=== PATIENT | male | born 1950 | race Caucasian/White ===

== ENCOUNTER 2025-06-29 15:19 | Outpatient (OUT) | payer OTHER, SELFPAY ==
--- OUTSIDE RECORDS SUMMARY | 2025-06-29 15:29 | XMS_ITS | Clinical Summary ---
Author Organization [facility] Address [address] [place] [address] Phone Care Team Providers Care Break And Load Operator Name Role Phone Dedrick Anton Charles Primary Care Provider [phone] Allergies Active AllergyReactionsCriticalityNoted DateCommentsOxycodone-Acetaminophen Avjzksq8206/18/2023 Medications MedicationSigDispense QuantityRefillsLast FilledStart DateEnd DateStatus EPINEPHrine 0.3 mg/0.3 mL injection syringe Inject 0.3 mL (0.3 mg) into the muscle 1 time if needed for anaphylaxis. Inject into upper leg. Call 911 after use.Active metoprolol tartrate (Lopressor) 25 mg tablet Take 1 tablet (25 mg) by mouth 2 times a day.Active tamsulosin (Flomax) 0.4 mg 24 hr capsule Take 1 capsule (0.4 mg) by mouth once daily.Active aspirin 81 mg EC tablet Take 1 tablet (81 mg) by mouth once daily.Active atorvastatin (Lipitor) 40 mg tablet Indications:Thoracic aortic aneurysm (TAA), unspecified part, unspecified whether ruptured,Dissection of descending thoracic aorta (Multi)Take 1 tablet (40 mg) by mouth once daily. 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 Essential mwbfvfgbvuff94/15/2023 Assessment & Plan (07/26/2024 3:21 PM EST): optimal in office Mixed xrbhaccefsoynr37/15/2023 Assessment & Plan (07/26/2024 3:21 PM EST): Moderate intensity statin Due for labs Resolved Problems ProblemNoted DateDiagnosed DateResolved DateCurrent bkrhij82 Thoracic aortic eqelkfln10Preoperative cardiovascular rzzbxizpypb96 Encounters DateTypeDepartmentCare SkbcAcdrlndfflu70/11/2025Telephone [facility] [address] [place] [phone] Lisa Chew LPN from Last 3 Months Immunizations ImmunizationAdministration DatesNext DueTdap vaccine, age 7 year and older (BOOSTRIX, ADACEL)07/31/2019 Family History Medical HistoryRelationNameCommentsNo Known ProblemsBrotherPancreatic cancer FatherNo Known ProblemsMotherDiabetes type IISistermalignant neoplasmSister RelationNameStatusCommentsBrotherFatherMotherSister Social History Tobacco UseTypesPacks/DayYears UsedDateSmoking Tobacco: FormerCigarettes Smokeless Tobacco: Never Tobacco Cessation:Counseling Given: Not Answered Alcohol UseStandard Drinks/WeekCommentsNever0 (1 standard drink = 0.6 oz pure alcohol)PHQ-2AnswerDate RecordedPatient Health Questionnaire-2 Atone477 Sex and Gender InformationValueDate RecordedSex Assigned at BirthNot on file Legal NlrKctv53/25/2022 4:16 PM ESTGender IdentityNot on fileSexual Orientation Not on file Last Filed Vital Signs Vital SignReadingTime TakenCommentsBlood Qcwpvaaf914/80007/26/2024 2:27 PM EST Ejwel6115/22/2025 2:27 PM ESTTemperature--Respiratory Rate--Oxygen Saturation-- Inhaled Oxygen Concentration--Inukwi30.8 kg (165 lb)07/26/2024 2:27 PM ESTHeight 177.8 cm (5' 10 )07/26/2024 2:27 PM ESTBody Mass Index23.68007/26/2024 2:27 PM EST Plan of Treatment DateTypeDepartmentCare Team (Latest Contact Info)Uyggkhqmgdo64/21/2026 4:00 PM ESTOffice Visit [facility] [address] [place] [address] Halina Reyes, LEGISLATIVE ANALYST-ETIOLOGIST [address] [place] [address] Health MaintenanceDue DateLast DoneCommentsCT Ukmqectqwxox48/05/1951Colonoscopy 1949Colorectal Cancer Ebnegxrgj20/05/1950FIT-DNA (Cologuard)1950FIT 1950 5304Jlvysqldaeqbd99/05/1950Yearly Adult Jyhmrqhe39/05/1950MMR Vaccines (1 of 1 - Standard series)1950Hepatitis C Yvybjnsia09/05/1968Pneumococcal Vaccine (1 of 1 - PCV)10/08/1999Zoster Vaccines (1 of 2)10/08/1999Abdominal Aortic Aneurysm (AAA) Hxrztfoeo11/05/2015Diabetes Ehfgsbmnl87/11/2022, 11/25/2022RSV High Risk: (Elderly (60+) or Population) (1 - 1-dose 75+ series)2024OVID-19 Vaccine (1 - 2024- season)2025Influenza Vaccine (#1)2025Lipid PanelTaP/Tdap/Td Vaccines (2 - Td or Tdap)HIB VaccinesAged OutNo longer eligible based on patient's age to complete this topicHPV VaccinesAged OutNo longer eligible based on patient's age to complete this topicHepatitis A VaccinesAged OutNo longer eligible based on patient's age to complete this topicHepatitis B VaccinesAged OutNo longer eligible based on patient's age to complete this topicIPV Vaccines Aged OutNo longer eligible based on patient's age to complete this topic Meningococcal VaccineAged OutNo longer eligible based on patient's age to complete this topicRotavirus VaccinesAged OutNo longer eligible based on patient's age to complete this topic Insurance * Guarantor: Steve Yip TypeRelation to PatientDate of BirthPhone Billing AddressPersonal/UaxiuhDxfm83/05/1951 [address] [facility] * Guarantor: Steve Yip TypeRelation to PatientDate of BirthPhone Billing AddressPersonal/RxrtrgFhcs14/05/1951 [address] [place] [address] Care Teams Team MemberRelationshipSpecialtyStart DateEnd Date Anton Tse DO [address] [place] [address] [facility]12/23/22
--- OUTSIDE RECORDS SUMMARY | 2025-06-29 15:29 | XMS_ITS | Clinical Summary ---
Author Organization [facility] Address [address] [facility] [place] [address] Care Team Providers Care Watch Train Inspector Name Role Phone Anton Tse DO Primary Care Provider [phone] Milli Garrison MD Unavailable [phone] Enriqueta Galeana APRN-INSURANCE HEALTHCARE CONSULTANT Unavailable [phone] Source Comments The following information is NOT included in Care Everywhere downloads:Psychiatric notes, ECG results, Cardiac Rehab notes, Pulmonary Function notes, data from [employer] (includes but not limited toPregnancy data,audiograms, eye exams, pre-surgical evaluation notes, well-child exam data).[facility] Allergies Active AllergyReactionsCriticalityNoted OgabNckxlxsjAjkfqicdKkptyat01/23/2023 Medications MedicationSigDispense QuantityRefillsLast FilledStart DateEnd DateStatus tamsulosin (FLOMAX) 0.4 MG capsule Take 1 Capsule by mouth daily. 60 Capsule 11:57 AM EDT11/30/2022ctive Multiple Vitamins-Minerals (Yan Multivitamin for Men) TABS Yan Multivitamin for Men ActiveActive atorvastatin (LIPITOR) 40 mg tablet Take 1 Tablet by mouth daily. 90 Tablet ctive metoprolol (LOPRESSOR) 25 MG tablet Take 1 Tablet by mouth 2 times daily. 60 Tablet ctive aspirin 81 MG chewable tablet Take 1 Tablet by mouth daily. 30 Tablet 11001/08/2023ctive acetaminophen (TYLENOL) 500 MG tablet Take 2 Tablets by mouth every 8 hours. 30 Tablet 01/07/2023ctive Active Problems ProblemNoted DateDiagnosed DateInfrarenal abdominal aortic aneurysm (AAA) without envykiu0601/06/2023Iliac artery cnnycarb38/12/2023issection of descending thoracic aorta11/24/2022 Resolved Problems ProblemNoted DateDiagnosed DateResolved DateAbdominal aortic aneurysm (AAA) without zyuepbv94 Immunizations ImmunizationAdministration DatesNext DuePfizer Monovalent (12+ yrs) SARS-COV-2 (COVID-19) vaccine, mRNA, spike protein, LNP, pres. free, 30mcg/0.3mL dose (BES=050)02/26/2021,02/05/2021Tdap (UYI=928)07/31/2019 Social History Tobacco UseTypesPacks/DayYears UsedDateSmoking Tobacco: Some XbdoPxxemwklyt9Qbyc attempted to quit: 08/19/2022Smokeless Tobacco: Never Tobacco Cessation:Ready to Q uit: Not Asked; Counseling Given: Not Answered Comments:Occ Alcohol UseStandard Drinks/WeekCommentsYes0 (1 standard drink = 0.6 oz pure alcohol)3 beers a monthHumiliation, Afraid, Rape, and Kick questionnaireAnswer Date RecordedWithin the last year, have you been afraid of your partner or ex-partner?No12/24/2022Within the last year, have you been humiliated or emotionally abused in other ways by your partner or ex-partner?No12/24/2022 Within the last year, have you been kicked, hit, slapped, or otherwise physically hurt by your partner or ex-partner?No12/24/2022Within the last year, have you been raped or forced to have any kind of sexual activity by your part ner or ex-partner?No12/24/2022Social Connection and Isolation PanelAnswerDate RecordedIn a typical week, how many times do you talk on the phone with family, friends, or neighbors?Patient xqcnqxmu44/22/2023How often do you get together with friends or relatives?Patient spivozue90/22/2023How often do you attend mandaen or worship services?Patient aarzsfri87/22/2023o you belong to any clubs or organizations such as mandaen groups, unions, fraternal or athletic jacki ups, or school groups?Patient cqwfckuz71/22/2023How often do you attend meetings of the clubs or organizations you belong to?Patient kbgkltip38/22/2023re you , , , , never , or living with a partner? Tppyfdb7212/24/2022Overall Financial Resource Strain (CARDIA)AnswerDate Recorded How hard is it for you to pay for the very basics like food, housing, medical care, and heating?Not hard at all12/24/2022Finhigh[facility] [place] [facility] Occup[facility] - Occupational Stress QuestionnaireAnswerDate RecordedDo you feel stress - tense, restless, nervous, or anxious, or unable to sleep at night because your mind is troubled all the time - these days?Patient dfmvvynx54/22/2023Exercise Vital SignAnswerDate RecordedOn average, how many days per week do you engage in moderate to strenuous exercise (like a brisk walk)?Patient fqiezfzs90/22/2023On average, how many minutes do you engage in exercise at this level?Patient whblhold74/22/2023Hunger Vital SignAnswerDate RecordedWithin the past 12 months, you worried that your food would run out before you got the money to buymore. Never true12/24/2022Within the past 12 months, the food you bought just didn't last and you didn't have money to get more.Never true12/24/2022RAPARE - TransportationAnswerDate RecordedIn the past 12 months, has lack of transportation kept you from medical appointments or from getting medications?No 12/24/2022In the past 12 months, has lack of transportation kept you from meetings, work, or from getting things needed for daily living?No12/24/2022 Housing Stability Vital SignAnswerDate RecordedIn the last 12 months, was there a time when you were not able to pay the mortgage or rent on time?No12/24/2022In the last 12 months, how many places have you lived?In the last 12 months, was there a time when you did not have a steady place to sleep or slept in ashelter (including now)?No12/24/2022EducationAnswerDate RecordedWhat is the highest level of school you have completed or the highest degree you have received?12th grade12/24/2022Substance UseTypesUse/WeekCommentsNot CurrentlySex and Gender InformationValueDate RecordedSex Assigned at XwvccKhzk51/10/2023 6:26 PM EDTLegal BarQppk3111/24/2022 8:59 AM EDTGender XadzzjqjWgjd43/10/2023 6:26 PM EDTSexual GapjwtxocsvVaotqbcw00/10/2023 6:26 PM EDT Last Filed Vital Signs Vital SignReadingTime TakenCommentsBlood Jxmgoaei131/5907 10:39 AM EDT Aejhi264601/07/2023 10:39 AM FPUVqxnpoaxkcx77.4 ??C (97.5 ??F)01/07/2023 10:39 AM EDTRespiratory Wmrk693101/07/2023 10:39 AM EDTOxygen Clrbrphswa75%01/07/2023 10:39 AM EDTInhaled Oxygen Concentration--Iueolh13.7 kg (158 lb)01/06/2023 11:54 AM DFKPxewvl602.8 cm (5' 10 )01/06/2023 11:54 AM EDTBody Mass Index22.6707 11:54 AM EDT Plan of Treatment Health MaintenanceDue DateLast WgnrSiriaavrZnurehybajv15/05/1951Hepatitis C Vwvsqqxa68/05/1968Hepatitis A (HAV) Vaccine (optional start 19+ years)1968 Pneumococcal Vaccine(s) (50+ yrs) (1 of 2 - PCV)1968CRC Screening 1994Cologuard (Stool DNA)1994FIT1994Shingles (RZV) Vaccine (1 of 2)10/08/1999Hepatitis B (HBV) Vaccine (optional start 60+ years)2009 Basic Metabolic Panel/02/2023, 01/06/2023, 12/11/2022, Additional history existsRSV vaccine (adult) (1 - 1-dose 75+ series)2024OVID-19 Vaccine (3 - season)/, 02/05/2021Influenza Vaccine (#1)03/05/20253651Gbioqwfdwap12Tetanus (Td or Tdap) Booster Tdap GdtbddiZomaxykgk86/27/2020 Medical Devices ImplantedTypeAreaManufacturerDevice IdentifierShelf Expiration DateModel / Serial / LotGft Evas 14cm 14.5mm 32mm Ea1 [id number] - [id number] Implanted:Qty: 1 on 01/06/2023 by Milli Garrison MD at INPATIENT DEPARTMENTSGraft SyntheticN/A: AortaW. L. Gore08/09/[id number] / [id number] / Stnt Eprsth 39mm 8mm 16sq Mm 7 Ea1 [id number] - [id number] Implanted:Qty: 1 on 01/06/2023 by Milli Garrison MD at INPATIENT DEPARTMENTSGraft SyntheticRight: LegW. L. Gore107/16/[id number] / [id number] / Graft Stent Excldr Endoprosthe Ea1 [id number] - [id number] Implanted:Qty: 1 on 01/06/2023 by Milli Garrison MD at INPATIENT DEPARTMENTSStent MetalRight: LegW. L. Gore07/26/[id number] / [id number] / Gft Evas 7cm 10mm [place] Xcldr Ea1 [id number] - [id number] Implanted:Qty: 1 on 01/06/2023 by Milli Garrison MD at INPATIENT DEPARTMENTSStent MetalRight: LegW. L. Gore02/17/[id number] / [id number] / Graft Endovasc Stent 27mm Ea1 [id number] - [id number] Implanted:Qty: 1 on 01/06/2023 by Milli Garrison MD at INPATIENT DEPARTMENTSStent MetalRight: LegW. L. Gore07/15/[id number] / [id number] / Gft Evas 12cm 12mm 10-11mm Ea1 [id number] - [id number] Implanted:Qty: 1 on 01/06/2023 by Milli Garrison MD at INPATIENT DEPARTMENTSStent SyntheticLeft: LegW. L. Gore03/04/[id number] / [id number] / Amplatzer Vascular Plug Ii 12mm X 100cm Implanted:Qty: 1 on 01/06/2023 by Milli Garrison MD at INPATIENT DEPARTMENTSStent SyntheticLeft: PseEkeuue84/31/23505-[id number] / / [id number] Procedures Procedure NamePriorityDate/TimeAssociated DiagnosisCommentsBASIC METABOLIC PANEL Vydlukb8003/12/2023 1:56 PM EDT Status post endovascular aneurysm repair (EVAR) FULL LIPID VSOPKEAGpvljqj76/24/2023 12:09 AM EDT from Last 3 Months or Most Recently Relevant to Health Maintenance Results * BASIC METABOLIC PANEL (03/12/2023 1:56 PM EDT)ComponentValueRef RangeTest MethodAnalysis TimePerformed AtPathologist LcughxclbFsmbnbt0611 - 116 mg/dL 03/12/2023 5:27 PM [facility] VRWVJLJMPHZqvyij566416 - 148 mmol/L 03/12/2023 5:27 PM [facility] LABORATORYPotassium4.63.3 - 5.3 mmol/L 03/12/2023 5:27 PM [facility] LABORATORYCarbon Vmmulel0156 - 30 mmol/L 03/12/2023 5:27 PM [facility] UJFCBVSEWONqftsada29288 - 111 mmol/L 03/12/2023 5:27 PM [facility] LABORATORYBlood Urea Kfefesnj997 - 22 mg/dL03/12/2023 5:27 PM [facility] LABORATORYCreatinine0.890.80 - 1.30 mg/dL03/12/2023 5:27 PM [facility] LABORATORYCalcium9.38.4 - 10.4 mg/dL 03/12/2023 5:27 PM [facility] LABORATORYAnion Cjs6366 - 5:27 PM [facility] LABORATORYEstimated GFR (CKD-EPI)90>=60 mL/min/1.82adf9803/12/2023 5:27 PM EDMARSHALL [facility] NORTH PATHOLOGY LABORATORYComment: 2020 CKD EPI Equation using Creatinine without Race Comment: ??Estimated glomerular filtration rate (eGFR) is calculated without a race coefficient. Values should be interpreted in the context of the patient's full clinical presentation. Reference: 1. Srinivas Leary, Arian M, Lori QUIGLEY, et al.. A Unifying Approach for GFR Estimation: Recommendations of the NKF-ASN Task Force on Reassessing the Inclusion of Race in Diagnosing Kidney Disease. AmericanJournal of Kidney Diseases 2021;79(2):268-88.e1. 2. N Engl J Med 2021 Vol. 385 Issue 19 Pages 3071-1208 Specimen (Source)Anatomical Location / LateralityCollection Method / Volume Collection TimeReceived TimeBloodBLOOD SPECIMEN / UnknownVenipuncture / Unknown 03/12/2023 1:56 PM EDT03/12/2023 3:49 PM EDT Narrative Authorizing ProviderResult TypeResult StatusLaura [place] ANTI TANK MISSILEMAN-CNP98 GENERAL LAB Final ResultPerforming OrganizationAddressCity/State/ZIP CodePhone Number [facility] [address] [place] [phone] * (ABNORMAL) FULL LIPID PROFILE (11/25/2022 12:09 AM EDT)ComponentValueRef Range Test MethodAnalysis TimePerformed AtPathologist AmjphjpefBokvcxdxvih584<200 mg/dL11/25/2022 12:44 AM [facility] HYQLULXNRPKybwivkezerww70<151 mg/dL 11/25/2022 12:44 AM [facility] LABORATORYHDL Zunetgubvir17(L)>44 mg/dL 11/25/2022 12:44 AM [facility] LABORATORYLDL rvkviubqwxw82<111 mg/dL 11/25/2022 12:44 AM [facility] LABORATORYNon-HDL Xbmpphollnf00<130 mg/dL 11/25/2022 12:44 AM [facility] LABORATORYChol/HDL Ratio4.88<5.00 11/25/2022 12:44 AM [facility] LABORATORYLDL/HDL Ratio3.46<3.57 11/25/2022 12:44 AM [facility] LABORATORYSpecimen (Source)Anatomical Location / LateralityCollection Method / VolumeCollection TimeReceived Time BloodBLOOD SPECIMEN / UnknownVenipuncture / Mtivejn6811/25/2022 12:09 AM EDT 11/25/2022 12:14 AM EDT Narrative Authorizing ProviderResult TypeResult StatusPrjuan jose Gonzalez MD98 GENERAL LABFinal ResultPerforming OrganizationAddressCity/State/ZIP CodePhone Number [facility] [address] [place] [address] from Last 3 Months or Most Recently Relevant to Health Maintenance Insurance * Guarantor: Harpal Yip TypeRelation to PatientDate of BirthPhone Billing AddressPersonal/EmpvvkYyju82/05/1951 [address] [place] [address] * Guarantor: Harpal Yip TypeRelation to PatientDate of BirthPhone Billing AddressPersonal/RovjklErht62/05/1951 [address] [place] [address] Advance Directives * Full Code (Latest Code Status on File) Date ActivatedDate InactivatedComments01/06/2023 8:04 PM01/07/2023 2:48 PMQuestion AnswerCommentsDocumentation of decision process for this code status:* Discussed with patient or surrogate.?? This is the code status chosen by the patient/surrogate. * Full Code Date ActivatedDate InactivatedComments11/28/2022 12:04 AM11/29/2022 4:01 PM QuestionAnswerCommentsDocumentation of decision process for this code status:* Discussed with patient or surrogate.?? This is the code status chosen by the patient/surrogate. * DNR Comfort Care Arrest (Do Not Intubate Prior to Arrest) Date ActivatedDate InactivatedComments11/27/2022 9:54 PM11/28/2022 12:04 AM Protocol is activated when the patient experiences cardiac or respiratory arrest. (All necessary treatments and interventions can be initiated prior to arrest.)QuestionAnswerCommentsDocumentation of decision process for this code status:* Patient and surrogate unable or unavailable to discuss.?? Defaulting to the previously documented code status. * DNR Comfort Care Arrest (Do Not Intubate Prior to Arrest) Date ActivatedDate InactivatedComments11/26/2022 10:50 AM11/27/2022 9:54 PM BestPractice Advisory * DNR Comfort Care Arrest (Do Not Intubate Prior to Arrest) Date ActivatedDate InactivatedComments11/24/2022 1:27 PM11/26/2022 10:50 AM Protocol is activated when the patient experiences cardiac or respiratory arrest. (All necessary treatments and interventions can be initiated prior to arrest.)QuestionAnswerCommentsDocumentation of decision process for this code status:* Discussed with patient or surrogate.?? This is the code status chosen by the patient/surrogate. Care Teams Team MemberRelationshipSpecialtyStart DateEnd Date Anton Tse DO [address] [place] [address]. [address] [place] [address] PCP - GeneralFamily Medicine12/11/22 Milli Garrison MD [address] [place] [address] PhysicianVascular Surgery01/02/23 Enriqueta Galeana APRN-INSURANCE HEALTHCARE CONSULTANT [address] [place] [address] APNVascular Seaqdyk78/7/23
--- OUTSIDE RECORDS SUMMARY | 2025-06-29 15:29 | XMS_ITS | Encounter Summary ---
Author Organization [facility] Address [address] [place] [address] Care Team Providers Care Early Childhood Education Instructor Name Role Phone Anton Tse DO Primary Care Provider [phone] Encounter Details DateTypeDepartmentCare Team (Latest Contact Info)Wyzyucfrufc00/17/2025Orders Only [facility] [address] [facility] [address] [place] [phone] Jesús Alvarado PA [address] [facility] [address] [place] [address] Colon cancer screening (Primary Dx) Social History Tobacco UseTypesPacks/DayYears UsedDateSmoking Tobacco: Every DayCigarettes0.355 Started: 1970Passive Smoke Exposure: CurrentSmokeless Tobacco: NeverAlcohol Use Standard Drinks/WeekCommentsNever0 (1 standard drink = 0.6 oz pure alcohol)B1300 Health LiteracyAnswerDate RecordedHow often do you need to have someone help you when you read instructions, pamphlets, or other written material from your doctor or pharmacy?Never10/27/2024Humiliation, Afraid, Rape, and Kick questionnaireAnswerDate RecordedWithin the last year, have you been afraid of your partner or ex-partner?No10/27/2024Within the last year, have you been humiliated or emotionally abused in other ways by your partner or ex-partner?No 10/27/2024Within the last year, have you been kicked, hit, slapped, or otherwise physically hurt by your partner or ex-partner?No10/27/2024Within the last year, have you been raped or forced to have any kind of sexual activity by your part ner or ex-partner?No10/27/2024Social Connection and Isolation PanelAnswerDate RecordedIn a typical week, how many times do you talk on the phone with family, friends, or neighbors?Once a week10/27/2024How often do you get together with friends or relatives?Patient hjsuyncs05/25/2025How often do you attend buddhist or holiness services?Patient hmedrbcq37/25/2025Do you belong to any clubs or organizations such as buddhist groups, unions, fra[employer] or athletic groups, or school groups?Patient kkwlewlb51/25/2025How often do you attend meetings of the clubs or organizations you belong to?Patient vrezupdp68/25/2025re you , , , , never , or living with a partner? 10/27/2024UDIT-CAnswerDate RecordedQ1: How often do you have a drink containing alcohol?Never10/27/2024Q2: How many drinks containing alcohol do you have on a typical day when you are drinking?Patient does not drink10/27/2024Q3: How often do you have six or more drinks on one occasion?Never10/27/2024Overall Financial Resource Strain (CARDIA)AnswerDate RecordedHow hard is it for you to pay for the very basics like food, housing, medical care, and heating?Not very hard 10/27/2024PHQ-2AnswerDate RecordedPatient Health Questionnaire-2 Score0 06/07/2025[facility] - Occupational Stress QuestionnaireAnswerDate RecordedDo you feel stress - tense, restless, nervous, or anxious, or unable to sleep at night because yourmind is troubled all the time - these days?To some tgacft3910/27/2024Exercise Vital SignAnswerDate Recorded On average, how many days per week do you engage in moderate to strenuous exercise (like a brisk walk)?Patient lffnbfom65/25/2025On average, how many minutes do you engage in exercise at this level?Patient hqglnjoe51/25/2025Hunger Vital SignAnswerDate RecordedWithin the past 12 months, you worried that your food would run out before you got the money to buymore.Never true10/27/2024 Within the past 12 months, the food you bought just didn't last and you didn't have money to get more.Never true10/27/2024PRAPARE - TransportationAnswerDate RecordedIn the past 12 months, has lack of transportation kept you from medical appointments or from getting medications?No10/27/2024In the past 12 months, has lack of transportation kept you from meetings, work, or from getting things needed for daily living?No10/27/2024Housing Stability Vital SignAnswerDate RecordedIn the last 12 months, was there a time when you were not able to pay the mortgage or rent on time?No10/27/2024In the past 12 months, how many times have you moved where you were living?t any time in the past 12 months, were you homeless or living in a fci (including now)?No10/27/2024Sex and Gender InformationValueDate RecordedSex Assigned at BirthNot on fileLegal GdcChdi5109/16/2022 7:18 PM EDTGender IdentityNot on fileSexual OrientationNot on filedocumented as of this encounter Progress Notes * RAMA Ellis - 06/20/2025 11:22 AM EST Cologuard sent. documented in this encounter Plan of Treatment DateTypeDepartmentCare Team (Latest Contact Info)Jzzbzeshiwz21/02/2026 2:00 PM ESTOffice Visit [facility] [address] [place] [phone] Daina Gibson MD [address] [place] [address] NameTypePriorityAssociated DiagnosesOrder ScheduleCologuard?? colon cancer screeningLabRoutine Colon cancer screening Expected: 06/20/2025 (Approximate), Expires: 06/20/2026documented as of this encounter Visit Diagnoses Diagnosis Colon cancer screening- Primary Special screening for malignant neoplasms, colon documented in this encounter Care Teams Team MemberRelationshipSpecialtyStart DateEnd Date Anton Tse, [address] [facility] [address] [place] [address] PCP - GeneralFamily Medicine11/26/22documented as of this encounter
--- OUTSIDE RECORDS SUMMARY | 2025-06-29 15:29 | XMS_ITS | Clinical Summary ---
Author Organization [facility] Address [address] [place] [address] Care Team Providers Care Shuttle Final Inspector Name Role Phone Anton Tse DO Primary Care Provider [phone] Allergies Active AllergyReactionsCriticalityNoted DateCommentsBee VxrwlKuukxgn20/02/2023 Other Reaction(s): Unknown Oxycodone-GccyatotsvlluHuzqyal69/23/2023ollen BxjddhvZyvmfpj69/27/2023Short Ragweed Pollen GmtUuxxvem34/02/2023 Other Reaction(s): Unknown Medications MedicationSigDispense QuantityRefillsLast FilledStart DateEnd DateStatus EPINEPHrine (Epipen) 0.3 MG/0.3ML injection syringe 03/27/2022ctive cholecalciferol (D3 5000) 125 MCG (5000 UT) capsule Take by mouth DailyActive acetaminophen (Tylenol) 500 MG tablet Take 1,000 mg by mouth every 8 (eight) hours if zjucll3901/07/2023ctive Multiple Vitamins-Minerals (Yan Multivitamin for Men) tablet Active tamsulosin (Flomax) 0.4 MG 24 hr capsule Indications:Benign prostatic hyperplasia with lower urinary tract symptoms, symptom details unspecifiedTAKE ONE (1) CAPSULE BY MOUTH ONCE DAILY AT BEDTIME 90 capsule 5Active aspirin 81 MG EC tablet Take 81 mg by mouth DailyActive lisinopril-hydroCHLOROthiazide 20-25 MG tablet Indications:Primary hypertensionTake 1 tablet by mouth Daily 30 tablet 5Active Active Problems ProblemNoted DateDiagnosed DateBenign prostatic hyperplasia with urinary wpbouywiaoz34/27/2023urrent voufvi3501/28/2023 Overview (01/28/2023): Added secondary to documentation in Social History. Inguinal pain01/28/20238523Akgwhpsn99/27/2023ain in right ytwkqggv05/27/2023oor urinary hyxfqm4901/28/2023ost-void repjvkwzt56/27/8797Qrtkgmyzsnkh90/27/2023 Swelling of orkhwzg5101/28/2023Urinary vnggtfkwa01/27/2023Urinary urgency 01/28/20232003Orayfxupf63/27/2023Infrarenal abdominal aortic aneurysm (AAA) without lbztgwy1501/06/2023Iliac artery slyvocjo82/12/2023Other seborrheic keratosis 12/04/2022orokeratosis of Iexyqxr1012/04/2022issection of descending thoracic aorta11/24/2022 Encounters DateTypeDepartmentCare YureEhcfxryqocd38/17/2025Orders Only [facility] [address] [place] [phone] Jesús Alvarado PA Colon cancer screening (Primary Dx)06/07/2025 4:40 PM ESTOffice Visit [facility] [address] [place] [phone] Anton Tse, DO Primary hypertension (Primary Dx); Muscle weakness; Chronic hepatitis C without hepatic coma (HCC); Age-related cataract of both eyes, unspecified age-related cataract type 06/07/2025amboo flowsheet [facility] [address] [place] [phone] Anton Tse, DO 06/07/20258600Ebcnan48/01/4361Hybduf22/26/2025Refill [facility] [address] [place] [phone] Anton Tse, DO Primary ykbpuchsbuvf49/27/2025Orders Only [facility] [address] [place] [phone] Anton Tse, DO Primary hypertension (Primary Dx)04/16/2025bstract [facility] [address] [place] [address] Anton Tse, DO 04/03/2025[facility] [address] [place] [address] Anton Tse, DO Primary hypertension (Primary Dx)from Last 3 Months Immunizations ImmunizationAdministration DatesNext MxnKjjk4607/31/2019 Family History Medical HistoryRelationNameCommentsAlzheimer's diseaseMotherBreast cancerMother CancerMotherRelationNameStatusCommentsFatherDeceasedMotherDeceased Social History Tobacco UseTypesPacks/DayYears UsedDateSmoking Tobacco: Every DayCigarettes0.355 Started: 1970Passive Smoke Exposure: CurrentSmokeless Tobacco: Never Tobacco Cessation:Ready to Q uit: Yes; Counseling Given: Yes Alcohol UseStandard Drinks/WeekCommentsNever0 (1 standard drink = [...] in other ways by your partner or ex-partner?No10/27/2024Within the last year, have you been kicked, hit, slapped, or otherwise physically hurt by your partner or ex-partner?No10/27/2024Within the last year, have you been raped or forced to have any kind of sexual activity by your partner or ex-partner?No10/27/2024Social Connection and Isolation Panel AnswerDate RecordedIn a typical week, how many times do you talk on the phone with family, friends, or neighbors?Once a week10/27/2024How often do you get together with friends or relatives?Patient /25/2025How often do you attend worship or yarsani services?Patient zvwuhmeh99/25/2025Do you belong to any clubs or organizations such as worship groups, unions, fraternal or athletic groups, or school groups?Patient hreatmmb66/25/2025How often do you attend meetings of the clubs or organizations you belong to?Patient agitvqda16/25/2025 Are you , , , , never , or living with a partner?Tlkjkbg6610/27/2024UDIT-CAnswerDate RecordedQ1: How often do you have a drink containing alcohol?Never10/27/2024Q2: How many drinks containing alcohol do you have on a typical day when you are drinking?Patient does not drink 10/27/2024Q3: How often do you have six or more drinks on one occasion?Never 10/27/2024Overall Financial Resource Strain (CARDIA)AnswerDate RecordedHow hard is it for you to pay for the very basics like food, housing, medical care, and heating?Not very hard10/27/2024PHQ-2AnswerDate RecordedPatient Health Questionnaire-2 Oufyx12608/08/2024[facility] [place] [facility] Occupational Health - Occupational Stress QuestionnaireAnswerDate RecordedDo you feel stress - tense, restless, nervous, or anxious, or unable to sleep at night because yourmind is troubled all the time - these days?To some yyuiuc7710/27/2024Exercise Vital Sign AnswerDate RecordedOn average, how many days per week do you engage in moderate to strenuous exercise (like a brisk walk)?Patient xhwxtsqe48/25/2025On average, how many minutes do you engage in exercise at this level?Patient declined 10/27/2024Hunger Vital SignAnswerDate RecordedWithin the past 12 months, you worried that your food would run out before you got the money to buymore.Never true10/27/2024Within the past 12 months, the food you bought just didn't last and you didn't have money to get more.Never true10/27/2024PRAPARE - TransportationAnswerDate RecordedIn the past 12 months, has lack of transportation kept you from medical appointments or from getting medications?No 10/27/2024In the past 12 months, has lack of transportation kept you from meetings, work, or from getting things needed for daily living?No10/27/2024 Housing Stability Vital SignAnswerDate RecordedIn the last 12 months, was there a time when you were not able to pay the mortgage or rent on time?No10/27/2024In the past 12 months, how many times have you moved where you were living?0 10/27/2024t any time in the past 12 months, were you homeless or living in a half-way (including now)?No10/27/2024Sex and Gender InformationValueDate Recorded Sex Assigned at BirthNot on fileLegal PopQdpd6809/16/2022 7:18 PM EDTGender IdentityNot on fileSexual OrientationNot on file Last Filed Vital Signs Vital SignReadingTime TakenCommentsBlood Xfsmeaou408/8206/07/2025 5:18 PM EST Bpvzy748106/07/2025 5:18 PM AADEatomvrefyz90.7 ??C (98.1 ??F)06/07/2025 5:18 PM ESTRespiratory Rate--Oxygen Whgqtymgni78%06/07/2025 5:18 PM ESTInhaled Oxygen Concentration--Qmqtib47.6 kg (171 lb)06/07/2025 5:18 PM TCLPgldee826.3 cm (5' 9 )06/07/2025 5:18 PM ESTBody Mass Index25.25108/08/2024 5:18 PM EST Plan of Treatment DateTypeDepartmentCare Team (Latest Contact Info)Goeobcvmmma07/02/2026 2:00 PM ESTOffice Visit [facility] [address] [place] [address] Daina Gibson MD [address] [place] [address] Health MaintenanceDue DateLast DoneCommentsCT Irynawstvokw13/05/1951Colonoscopy 1950FIT1949FOBT1950 3992Iwwxrmhomyqyk72/05/1951Pneumococcal Vaccine: 65+ Years (1 of 2 - PCV)1968Colorectal Cancer Czcmkrglb26/03/2025 FIT-DNA/09/2021Influenza Vaccine (#1)2025 Procedures Procedure NamePriorityDate/TimeAssociated DiagnosisCommentsLAB COLOGUARD?? COLON CANCER TSISVCPxnmooi60/03/2022 from Last 3 Months or Most Recently Relevant to Health Maintenance Results * Cologuard?? colon cancer screening (02/04/2022)ComponentValueRef RangeTest MethodAnalysis TimePerformed AtPathologist SignatureCOLOGUARD RESULT REPORTABLECancelled - Order ExpiredNot ApplicableN[facility] Specimen (Source)Anatomical Location / LateralityCollection Method / Volume Collection TimeReceived Time02/04/2022 Narrative Authorizing ProviderResult TypeResult StatusPacynthia Tse DOL MOLECULAR DIAGNOSTICS ORDERABLESFinal ResultPerforming OrganizationAddressCity/State/ZIP CodePhone Number [facility] from Last 3 Months or Most Recently Relevant to Health Maintenance Insurance * Guarantor: Harpal Yip TypeRelation to PatientDate of BirthPhone Billing AddressPersonal/EvcyqkHmjk46/05/1951 [address] [place] [phone] Care Teams Team MemberRelationshipSpecialtyStart DateEnd Date Anton Tse DO [address] [place] [address] PCP - GeneralFamily Medicine11/26/22
== END 2025-06-29 15:20 | disposition home or self-care (01) ==
PROVIDERS: PCP Family Medicine; Visit Provider Internal Medicine
DX: B18.2 Chronic viral hepatitis C (principal)
CPT/HCPCS: 36415; 87522